=== PATIENT | female | born 1935 | race Caucasian/White ===

== ENCOUNTER 2019-02-24 14:57 | Emergency (ER) | payer MEDICARE, MEDICAID ==
[~2019-02-24] VITALS: Ht 152.4 cm; Wt 76.7 kg
[~2019-02-24 14:57] MED LIST: AMOX1TAB11 PO; ASCO500T3 PO; CALC500T31 PO; CIPR250T30 PO; CITA20TA9 PO; DIAZ5TAB4 PO; DONE10TA61 PO; FAMO20TA5 PO; FENT1PAT17 TP; FURO40TA4 PO; GABA-585 PO; INSU100C SQ; INSU100I13 SQ; IPRA3AMP29 NEB; LIDO700A4 TP; LIRA0.6P2 SQ; MULT-208 PO; NITR50CA PO; OXYC1TAB7 PO; OXYC5CAP PO; PIPE3.3734 IV; POTA20TA4 PO; TIZA4TAB2 PO; VANC1VIA3 IV; ZINC50TA39 PO
--- NOTE | 2019-02-24 16:47 | PHYS DOC ---
Past Medical History Past Medical History: Constipation, Dementia, Diabetes-Type II, GERD, Other Additional Past Medical Histor: oa Past Surgical History: Cholecystectomy Additional Past Surgical Histo: UNK Alcohol Use: None Drug Use: None Adult General Chief Complaint Chief Complaint: URINE CATHETER PROBLEM HPI HPI Patient is a 83 year old female who presents with the fdc sent the patient here after they changed her upper pubic catheter they noticed the object protruding from her vaginal area. They pulled it out and it is a ureteral stent had been placed in April 2018 because patient had a 1.6 mm stone. The skin was placed by Dr Clark. Review of Systems Review of Systems Constitutional: Denies fever or chills [] GI: Foreign body found protruding from vaginal area. Denies abdominal pain, nausea, vomiting, bloody stools or diarrhea [] : Denies dysuria or hematuria [] All other systems were reviewed and found to be within normal limits, except as documented in this note. Allergies Allergies Allergies Coded Allergies Type Severity Reaction Last Updated Verified aspirin Allergy Intermediate 06/04/16 Yes erythromycin base Allergy Intermediate 06/04/16 Yes Physical Exam Physical Exam Constitutional: Well developed, well nourished, no acute distress, non-toxic appearance. [] HENT: Normocephalic, atraumatic, bilateral external ears normal, oropharynx moist, no oral exudates, nose normal. [] Eyes: PERRLA, EOMI, conjunctiva normal, no discharge. [] Neck: Normal range of motion, no tenderness, supple, no stridor. [] Cardiovascular:Heart rate regular rhythm, no murmur [] Lungs & Thorax: Bilateral breath sounds clear to auscultation [] Abdomen: Suprapubic catheter in place and draining clear yellow urine. Bowel sounds normal, soft, no tenderness, no masses, no pulsatile masses. [] Skin: Warm, dry, no erythema, no rash. [] Back: No tenderness, no CVA tenderness. [] Extremities: No tenderness, no cyanosis, no clubbing, ROM intact, no edema. [] Neurologic: Alert and oriented X 3, normal motor function, normal sensory function, no focal deficits noted. [] Psychologic: Affect normal, judgement normal, mood normal. Normal Physical Exam [] Current Patient Data Vital Signs Vital Signs Date Time Temp Pulse Resp B/P (MAP) Pulse Ox O2 Delivery O2 Flow Rate FiO2 9/10/19 17:00 102 18 135/74 (94) 97 Room Air 02/24/19 15:10 98.5 98.5 EKG EKG [] Radiology/Procedures Radiology/Procedures [] Impressions: [facility] [address] [place] [address] IMAGING REPORT Signed PATIENT: RENATA CLARKE LACCOUNT: [id number] : 1935 LOCATION: ER AGE: 83 SEX: F EXAM STATUS: REG ER ORD. PHYSICIAN: STERLING BOYD APRN REASON: Ureteral stint fell out, hx kidney stone PROCEDURE: KUB Examination: KUB History: Ureteral stent reportedly fell out. Kidney stones. Comparison/Correlation: None Findings: Portable supine frontal views of the abdomen were provided. Right upper quadrant surgical clips are present. Moderate quantity of stool in colon noted. This may limit assessment for calculi. Calcific density at the left mid abdomen measuring up to 2.2 cm diameter is present multiple calcific densities overlying left renal shadow are present. No ureteral stent identified. Calcific densities may also be present overlying the right renal shadow. Significant quantity of stool is noted within the distal sigmoid colon and rectum. Impression: Calcific densities overlying the left midabdomen which probably relate to calyceal calculi and possibly left renal pelvis calculus. Correlate with prior exams. Electronically signed by: Buck Bell MD (02/24/2019 5:03 PM) [facility] DICTATED and SIGNED BY: BUCK BELL MD DATE: 02/24/19 170 Course & Med Decision Making Course & Med Decision Making Patient is a 83 year old female who presents with the fdc sent the patient here after they changed her upper pubic catheter they noticed the object protruding from her vaginal area. They pulled it out and it is a ureteral stent had been placed in April 2018 because patient had a 1.6 mm stone. The skin was placed by Dr Clark. The suprapubic catheter is draining clear yellow urine. Abdomen is soft and nontender. No CVA tenderness. Patient is alert and oriented only to self and place. Skin pink warm and dry. Vital signs within normal limits. Afebrile. I called and spoke with . elderly companion for urology who states to do a KUB and have it sent to Dr. Clark and send the patient back to the fdc. He states there is really not much to do at this time. Patient is stable and in no distress. External vagina is examined with RN present and there are no abnormalities or other foreign objects seen. KUB shows: Calcific densities overlying the left midabdomen which probably relate to calyceal calculi and possibly left renal pelvis calculus. Correlate with prior exams. I have discussed results with Dr Oliveira. Patient is sent back to nursing facility. Radiology is asked to have KUB sent to Dr Clark. Dewayne Disclaimer [employer] Disclaimer This electronic medical record was generated, in whole or in part, using a voice recognition dictation system. Departure Departure Impression: Primary Impression: Encounter for medical screening examination Disposition: 01 HOME, SELF-CARE Condition: STABLE Referrals: HUBER PAREDES MD (PCP) DARELL CLARK MD Patient Instructions: Medical Screening Exam Additional Instructions: Follow up with Dr Clark at urology as soon as possible. STERLING BOYD [employer] REPA[employer] TECHNICIAN Feb 24, 2019 16:47
--- NOTE | 2019-02-24 17:06 | RAD ---
Examination: KUB History: Ureteral stent reportedly fell out. Kidney stones. Comparison/Correlation: None Findings: Portable supine frontal views of the abdomen were provided. Right upper quadrant surgical clips are present. Moderate quantity of stool in colon noted. This may limit assessment for calculi. Calcific density at the left mid abdomen measuring up to 2.2 cm diameter is present multiple calcific densities overlying left renal shadow are present. No ureteral stent identified. Calcific densities may also be present overlying the right renal shadow. Significant quantity of stool is noted within the distal sigmoid colon and rectum. Impression: Calcific densities overlying the left midabdomen which probably relate to calyceal calculi and possibly left renal pelvis calculus. Correlate with prior exams. Electronically signed by: Buck Rivero MD (02/24/2019 5:03 PM) [facility]
[2019-02-24 18:00] VITALS: BP 133/67
== END 2019-02-24 18:30 | disposition home or self-care (01) ==
LOC: ER 14:57
DX: T83.198A Other mechanical complication of other urinary devices and implants, initial encounter (principal); E11.9 Type 2 diabetes mellitus without complications; K21.9 Gastro-esophageal reflux disease without esophagitis; Z90.49 Acquired absence of other specified parts of digestive tract; Z88.6 Allergy status to analgesic agent; Z88.1 Allergy status to other antibiotic agents
CPT/HCPCS: 74018; 99283

== ENCOUNTER 2019-03-12 11:45 | Day surgery (SDC) | payer MEDICARE, MEDICAID ==
[~2019-03-12] VITALS: Ht 139.7 cm; Wt 78.5 kg
[~2019-03-12 11:45] MED LIST changes: +ACET325T9 PO; +CEFU500T46 PO; +HYDROmorphone 2 MG/ML VIAL IV PRN; +IV RINGERS,LACTATED 1000ML 1,000 ML IV SCH; +MAG355OR11 PO; +MAGN400O7 PO; +METR500T PO; +MORPHINE SULFATE 2 MG/ML VIAL. IV PRN; +ONDA4TAB7 PO; +ONDANSETRON PF 4 MG/2 ML VIAL. IV PRN; +PREG75CA PO; +PROCHLORPERAZINE 10 MG/2 ML VIAL. IV PRN; +fentaNYL PF VIAL 100 MCG/2 ML VIAL IV PRN
[2019-03-12] MEDS ORDERED: LIDOCAINE 2% JELLY 6ML IN APPLICATOR. ONE (12:03)
[2019-03-12] MEDS ORDERED: IOHEXOL 300 MG/ML 50 ML VIAL. ONE (12:03)
[2019-03-12] MEDS ORDERED: LIDOCAINE 2% PF 5 ML VIAL. ONE (13:07)
[2019-03-12] MEDS ORDERED: DEXAMETHASONE SOD PHOS 4 MG/ML VIAL ONE (13:07)
[2019-03-12] MEDS ORDERED: PROPOFOL 0 ML IV ONE (13:07)
[2019-03-12] MEDS ORDERED: fentaNYL PF VIAL 100 MCG/2 ML VIAL ONE ×2 (13:07→15:14)
[2019-03-12] MEDS ORDERED: SEVOFLURANE 31 TO 60 MINUTES. IH ONE (13:07)
[2019-03-12] MEDS ORDERED: ONDANSETRON PF 4 MG/2 ML VIAL. ONE (13:07)
[2019-03-12] MEDS ORDERED: PHENYLEPHRINE in 0.9% NACL PF 1 MG/10 ML SYRINGE. IV ONE (13:55)
--- NOTE | 2019-03-12 15:07 | PDOC4 ---
OPERATIVE NOTE Date: Date: May 08, 2018 Pre-Op Diagnosis: left kidney stone Post-Op Diagnosis: same Procedure Performed: left ureteroscopy, laser of stone, stent placement Surgeon: Darell Clark Anesthesia Type: general Blood Loss: 0 Specimans Obtained: left kidney stone fragment Findings: large left kidney stone. good fragmentation Complications: none Operative Note: see dictation DARELL CLARK MD Mar 12, 2019 15:07
--- NOTE | 2019-03-12 15:09 | DISCH ---
DISCHARGE INSTRUCTIONS Condition on Discharge Condition on Discharge: Stable Activity After Discharge Activity Instructions for Disc: Activity as tolerated Weight Bearing Status after Di: Non weight bearing Diet after Discharge Diet after Discharge: Level I Dysphagia pureed Liquid Texture: Honey-thick Swallowing Supervision: 1 to 1 feeding Checks after Discharge Checks after discharge: Check blood press - daily, Check blood sugar, ac/hs Contacting the DRStiven after DC Call your doctor for: Fever greater than 100 Follow-Up Follow up with: Dr. Clark 1-2 weeks for stent removal Treatment/Equipment after DC Adaptive Equipment Issued: Front wheeled walker DARELL CLARK MD Mar 12, 2019 15:09
[2019-03-12] MEDS: fentaNYL PF VIAL 100 MCG/2 ML VIAL IV PRN ×3 (15:15→15:30)
--- NOTE | 2019-03-12 15:23 | OP ---
DATE OF SURGERY: 03/12/2019 SURGEON: Darell Clark MD TRENCH PIPE LAYER HELPER: None. PREOPERATIVE DIAGNOSIS: Left kidney stone. POSTOPERATIVE DIAGNOSIS: Left kidney stone. PROCEDURE PERFORMED: Left ureteroscopy with laser of stone and stent placement. ANESTHESIA TYPE: General. DESCRIPTION OF PROCEDURE: The patient is an 83-year-old female with a large left kidney stone. She was recommended to undergo treatment about a year ago, but then did not return for followup. She now presents for definitive stone management. Informed consent was obtained. The patient was taken to the operating room and general anesthesia was induced. She was placed in dorsal lithotomy position, sterilely prepped and draped. A timeout was performed. Rigid cystoscope was advanced through the urethra and into the bladder. The floor of the bladder had a distorted appearance, eventually the left ureter was identified and a guidewire was placed through it. An access sheath was advanced over the wire without any difficulty. The safety wire was placed. The access sheath was repositioned. A flexible ureteroscope was then advanced up into the kidney where a large stone was seen in the mid and lower pole. The stone was fragmented with the holmium laser into multiple tiny fragments. The stone easily broke and was very soft. Some of the larger pieces were grasped with the basket and easily withdrawn and measured about 1-2 mm in size. The remaining fragments were too numerous and too small to grasp. Visualization was excellent. The access sheath and scope was then slowly withdrawn and the ureter appeared unremarkable. A 6 x 22 cm stent was then advanced over the wire and left in appropriate position with a proximal curl of the stent in the upper pole and the distal curl in the bladder. The patient's suprapubic catheter was exchanged. She was then awakened and taken to the recovery room in stable condition. BLOOD LOSS: None. COMPLICATIONS: None. SPECIMEN: Kidney stone fragment. DARELL CLARK MD DR: LOPEZ/nolan JOB#: [id number] / [id number]
[2019-03-12 15:56] VITALS: BP 172/40
== END 2019-03-12 16:20 ==
LOC: SURG 11:45
PROVIDERS: ATTEND Urology
DX: N20.0 Calculus of kidney (principal); Z79.899 Other long term (current) drug therapy
CPT/HCPCS: 52356; 76000; 82365; 82962; C1713; C1769; C2617; J0696; J0780; J2370; J3010; Q9967; J1100; J2001; J2405; J2704